=== PATIENT | male | born 1985 | race Caucasian/White ===

== ENCOUNTER → 2016-08-06 | Outpatient (CLI) | payer BC ==
--- NOTE | 2016-08-06 14:35 | CR ---
EXAMINATION: Right shoulder HISTORY: Injury COMPARISON: None TECHNIQUE: 3 views FINDINGS/IMPRESSION: There is no acute osseous abnormality, dislocation, or fracture identified. Bon e mineralization and joint spaces appear normal.
== END ==
LOC: MW.CHFP 09:31
PROVIDERS: ATTEND Physician Assistant
DX: S49.91XA Unspecified injury of right shoulder and upper arm, initial encounter (principal)
CPT/HCPCS: 73030-26-RT; 73030-RT

== ENCOUNTER → 2021-08-29 | Emergency (ER) | payer BC ==
[~2021-08-29] MED LIST: Acetaminophen/oxyCODONE 325-5 MG Tab PO ONE; Diphtheria,Pertussis(Acell),Tetanus Vaccine 0.5 ML Syringe IM ONE; Lidocaine 1% 5 ML VIAL INJECT ONE; Morphine 4 MG/ML VIAL IVPUSH ONE; Ondansetron 4 MG/2 ML SDV IVPUSH ONE; ceFAZolin 2 GM in Premix Bag 1 BAG IV ONE
[2021-08-29 13:26] VITALS: BP 132/64; PULSE 54
== END | disposition home or self-care (01) ==
LOC: MW.ED 12:34
DX: S62.623B Displaced fracture of middle phalanx of left middle finger, initial encounter for open fracture (principal); Z23 Encounter for immunization; W31.89XA Contact with other specified machinery, initial encounter
CPT/HCPCS: 12004; 73120; 73130; 90471; 90715; 96365; 96375; 99283; A9270; J0690; J2270; J2405

== ENCOUNTER 2022-02-15 17:55 | Emergency (ER) | payer BC ==
[2022-02-15 20:13] VITALS: BP 125/78; PULSE 84
== END 2022-02-15 20:09 | disposition home or self-care (01) ==
LOC: MW.ED 17:55
DX: R19.7 Diarrhea, unspecified (principal)
CPT/HCPCS: 87045; 87046; 87324; 87328; 87329; 87449; 87899; 99283